=== PATIENT | male | born 1965 | race Caucasian/White ===

== ENCOUNTER 2016-12-08 16:52 | Emergency (ER) | payer OTHER ==
[~2016-12-08] VITALS: Ht 160 cm; Wt 83.5 kg
[2016-12-08 17:37] LABS: ABSOLUTE BASOPHIL COUNT 0 /CUMM (0.0-0.2); ABSOLUTE EOSINOPHIL COUNT 0.2 /CUMM (0.0-0.7); ABSOLUTE GRANULOCYTE CT 5.5 /CUMM (1.4-6.5); ABSOLUTE LYMPH COUNT 2.9 /CUMM (1.2-3.4); ABSOLUTE MONOCYTE COUNT 0.9 /CUMM (0.10-0.60); BASOPHIL % 0.4 % (0.0-2.0); EOSINOPHIL % 2.3 % (0-5); GRANULOCYTE % 57.7 % (42.2-75.2); HEMATOCRIT 45.3 % (42-52); MEAN CORPUSCULAR HGB 29.3 PG (27.0-31.0); MEAN CORPUSCULAR HGB CONC 33.9 G/DL (33.0-37.0); MEAN CORPUSCULAR VOLUME 86.4 FL (80.0-94.0); MEAN PLATELET VOLUME 8.5 FL (7.4-10.4); PLATELET COUNT 220 /CUMM (130-400); RBC DISTRIBUTION WIDTH 12.9 % (11.5-14.5); RED BLOOD CELL CT 5.24 /CUMM (4.70-6.10); WHITE BLOOD CELL COUNT 9.6 /CUMM (4.8-10.8)
--- NOTE | 2016-12-08 18:52 | ED GENERAL ADULT ---
History of Present Illness General Chief Complaint: General Adult Stated Complaint: HIGH BP PER PT, LIGHT HEADED, WEAKNESS Source: patient, Exam Limitations: no limitations Vital Signs & Intake/Output Vital Signs & Intake/Output Vital Signs Date Time Temp Pulse Resp B/P B/P Pulse O2 O2 Flow FiO2 Mean Ox Delivery Rate 12/08 1702 98.0 78 20 146/76 96 Room Air Allergies Coded Allergies: NO KNOWN ALLERGIES (10/25/14) Reconcile Medications No Known Home Medications Triage Note: PT TO ED C/O HIGH BLOOD PRESSURE. TOOK IT AT HOME AND IT WAS "150". DENIES ANY PAIN. C/O FEELING "VERY TIRED" AND DIZZY. BP IN TRIAGE 146/76. PT TO EKG [place]. Triage Nurses Notes Reviewed? yes Onset: Gradual Duration: day(s):, continues in ED Timing: multiple episodes today Severity: mild, moderate HPI: Patient presents for evaluation of generalized weakness and intermittent high blood pressure over the past 2 weeks. Patient states he also tends to feel a little dizzy at times and experiences occasional facial burning. He also feels he urinates a lot tend will also feel shaky at times. Past History Travel History Traveled to [place] past 21 day No Medical History Any Pertinent Medical History? see below for history Respiratory: SLEEP APNEA Surgical History Surgical History: non-contributory Psychosocial History What is your primary language Latvian Tobacco Use: Never used ETOH Use: denies use Illicit Drug Use: denies illicit drug use Family History Hx Contributory? No Review of Systems Review of Systems Constitutional: Reports: weakness. EENTM: Reports: no symptoms. Respiratory: Reports: no symptoms. Cardiovascular: Reports: no symptoms. GI: Reports: no symptoms. Genitourinary: Reports: see HPI. Musculoskeletal: Reports: no symptoms. Skin: Reports: no symptoms. Neurological/Psychological: Reports: no symptoms. Hematologic/Endocrine: Reports: no symptoms. Immunologic/Allergic: Reports: no symptoms. All Other Systems: Reviewed and Negative Physical Exam Physical Exam General Appearance: see below Comments: Gen.: Well-nourished, well-developed, no acute respiratory distress. Head: Normocephalic, atraumatic. Eyes: Normal inspection bilaterally Ears: Normal inspection bilaterally Nose: Normal inspection Throat/mouth : Moist mucosa Neck: Supple, full range of motion, no goiter Heart: Regular rate and rhythm, no murmurs rubs or gallops Lungs: Clear to auscultation bilaterally with normal air entry Chest: Nontender Back: Normal range of motion Abdomen: Soft, nontender, nondistended, normal bowel sounds Extremities: Normal range of motion grossly, equal radial pulses, no cyanosis clubbing or edema Neurologic: Cranial nerves grossly intact, speech is clear Skin: warm and dry Psychiatric: Calm, cooperative, no apparent delusions or hallucinations Core Measures ACS in differential dx? No CVA/TIA Diagnosis: No Severe Sepsis Present: No Septic Shock Present: No Progress Differential Diagnoses I considered the following diagnoses in my evaluation of the patient: Anemia, electrolyte abnormality, dehydration, hypothyroidism, urinary tract infection Plan of Care: Orders Procedure Date/time Status Add-on Test (ER Only) 12/08 1851 Active URINALYSIS 12/08 1748 Complete THYROID STIMULATING HORMONE 12/08 172 Complete COMPREHENSIVE METABOLIC PANEL 12/08 171 Complete CBC WITHOUT DIFFERENTIAL 12/08 1717 Complete EKG 12/08 170 Active Laboratory Tests 12/08/16 1720: Anion Gap 13, Estimated GFR > 60, BUN/Creatinine Ratio 17.5, Glucose 90, Calcium 9.5, Total Bilirubin 0.4, AST 32, ALT 57, Alkaline Phosphatase 58, Total Protein 8.2, Albumin 4.7, Globulin 3.5, Albumin/Globulin Ratio 1.3, TSH 1.860, CBC w Diff NO MAN DIFF REQ, RBC 5.24, MCV 86.4, MCH 29.3, RDW 12.9, MPV 8.5, Gran % 57.7, Lymphocytes % 30.0, Monocytes % 9.6 H, Eosinophils % 2.3, Basophils % 0.4 , Absolute Granulocytes 5.5, Absolute Lymphocytes 2.9, Absolute Monocytes 0.9 H , Absolute Eosinophils 0.2, Absolute Basophils 0, PUBS MCHC 33.9 12/08/16 1657: Urine Color STRAW, Urine Clarity CLEAR, Urine pH 6.0, Ur Specific Sylvester <= 1.005, Urine Protein NEG, Urine Ketones NEG, Urine Nitrite NEG, Urine Bilirubin NEG, Urine Urobilinogen 0.2, Ur Leukocyte Esterase NEG, Ur Microscopic EXAM NOT REQUIRED, Urine Hemoglobin NEG, Urine Glucose NEG Initial ED EKG: none Comments: 20:27 I have updated deisy and His on Test Results. He is feeling better. Although he has no known history of prostate problems, I suspect that he is suffering some prostate enlargement given his history of urinary frequency. Departure Departure Disposition: HOME OR SELF CARE Condition: Stable Clinical Impression Primary Impression: Malaise Referrals: SHUBHAM PETERSON DO (PCP/Family) EDUARDO RODRIGUEZ,ROSE Sebastian Additional Instructions: The cause of your symptoms is unclear at this point. Please follow-up with your primary care doctor for further evaluation and testing. He may also wish to follow up with Dr. Fitzpatrick given the frequent urination. Return if any concerns or sudden worsening. Consider using saw palmetto for your urinary frequency. Departure Forms: Customer Survey General Discharge Information Prescriptions: Current Visit Scripts No Known Home Medications Critical Care Note Critical Care Note Critical Care Time: non-applicable
[2016-12-08 20:46] VITALS: BP 138/72
== END 2016-12-08 20:47 ==
LOC: ERH 16:52
PROVIDERS: Emergency Medicine
DX: R53.81 Other malaise (principal)
CPT/HCPCS: 81003; 93005; 93010

== ENCOUNTER 2017-09-09 18:54 | Emergency (ER) | payer OTHER ==
[~2017-09-09] VITALS: Ht 160 cm; Wt 86.2 kg
[2017-09-09 19:50] LABS: ABSOLUTE BASOPHIL COUNT 0 /CUMM (0.0-0.2); ABSOLUTE EOSINOPHIL COUNT 0.2 /CUMM (0.0-0.7); ABSOLUTE GRANULOCYTE CT 4.6 /CUMM (1.4-6.5); ABSOLUTE LYMPH COUNT 2.9 /CUMM (1.2-3.4); ABSOLUTE MONOCYTE COUNT 1.2 /CUMM (0.10-0.60); BASOPHIL % 0.3 % (0.0-2.0); EOSINOPHIL % 2.1 % (0-5); GRANULOCYTE % 51.7 % (42.2-75.2); HEMATOCRIT 45.1 % (42-52); MEAN CORPUSCULAR HGB 28.9 PG (27.0-31.0); MEAN CORPUSCULAR VOLUME 87.5 FL (80.0-94.0); MEAN PLATELET VOLUME 8.6 FL (7.4-10.4); PLATELET COUNT 223 /CUMM (130-400); RBC DISTRIBUTION WIDTH 13.1 % (11.5-14.5); RED BLOOD CELL CT 5.16 /CUMM (4.70-6.10); WHITE BLOOD CELL COUNT 8.9 /CUMM (4.8-10.8)
--- NOTE | 2017-09-09 20:11 | RADIOLOGY REPORT ---
EXAMINATION: CHEST 2 VIEWS CLINICAL INFORMATION: Chest pain. COMPARISON: None. TECHNIQUE: PA and lateral views of the chest were obtained. FINDINGS: The cardiac silhouette is not enlarged. The mediastinal and hilar contours are unremarkable. There are neither pleural effusions nor pneumothoraces. There are no consolidations. The osseous structures are unremarkable. IMPRESSION: No evidence for acute disease.
[2017-09-09 22:00] VITALS: BP 113/79
--- NOTE | 2017-09-09 22:00 | ED CARDIAC/CP/PALPITATIONS ---
History of Present Illness General Chief Complaint: Chest Pain Stated Complaint: CP SINCE 113 TODAY Source: patient, family () Exam Limitations: no limitations Vital Signs & Intake/Output Vital Signs & Intake/Output Vital Signs Date Time Temp Pulse Resp B/P B/P Pulse O2 O2 Flow FiO2 Mean Ox Delivery Rate 09/097 98 Room Air 09/090 98.4 86 18 113/79 96 Room Air ED Intake and Output 09/10 0000 09/09 1200 Intake Total 0 Output Total Balance 0 Intake, Oral 0 Patient 190 lb Weight Allergies Coded Allergies: NO KNOWN ALLERGIES (04/22/17) Reconcile Medications Ibuprofen 800 MG TABLET 1 TAB PO TID PRN PAIN Triage Note: PT TO TRIAGE C/O CP SINCE 1129 WORSE WITH INSPIRATION AND MOVEMENT. PER PT PAIN 5/10, NON RADIATING. DENIES /DENIES DIAPHORESIS. STATES PAIN BEGAN AT REST. PT DENIES CARDIAC HX. Triage Nurses Notes Reviewed? yes Onset: Abrupt Duration: hour(s): (8) Timing: single episode today Quality/Severity: mild, sharp Location: central Radiation: no radiation Activities at Onset: none Prior Chest Pain/Card Workup: no prior chest pain, no prior cardiac workup Modifying Factors: Worsens With: breathing, movement, palpation. Nitro Today/Relief: no nitro taken today Aspirin Today: no aspirin today HPI: 52-year-old male past medical history of hypertension and obstructive sleep apnea presents for evaluation of chest pain. Patient states that the pain began around 11:30 this morning while he was at rest. Pain is located in the middle of his chest and does not radiate. He describes it as sharp. The pain is worse with deep inspiration range of motion of the chest wall and bilateral upper extremities. Also worse with touching the area. He states the pain is mild he rates it as a 5 out of 10. He has not taken any medicine for this. He states that the pain is gone significant weight better since it first started. He is never had this before. No shortness of breath hemoptysis lower extremity edema recent surgery recent trauma. He is not a diabetic. No previous history of SC or other heart issues. No sweats chills nausea vomiting. No back pain. (Marcelo Duran) Past History Travel History Traveled to [place] past 21 day No Medical History Any Pertinent Medical History? 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 No (Marcelo Duran) Review of Systems Review of Systems Constitutional: Reports: no symptoms. EENTM: Reports: no symptoms. Respiratory: Reports: no symptoms. Cardiovascular: Reports: see HPI, chest pain. GI: Reports: no symptoms. Genitourinary: Reports: no symptoms. Musculoskeletal: Reports: no symptoms. Skin: Reports: no symptoms. Neurological/Psychological: Reports: no symptoms. Hematologic/Endocrine: Reports: no symptoms. Immunologic/Allergic: Reports: no symptoms. All Other Systems: Reviewed and Negative (Marcelo Duran) Physical Exam Physical Exam General Appearance: well developed/nourished, no apparent distress, alert, awake Head: atraumatic, normal appearance Eyes: Bilateral: normal appearance, PERRL, EOMI. Ears, Nose, Throat: normal pharynx, normal ENT inspection, hearing grossly normal Neck: normal inspection, supple, full range of motion, NO JVD Respiratory: normal breath sounds, no respiratory distress, lungs clear, CHEST WALL IS TENDER TO PALPATION Cardiovascular: regular rate/rhythm, normal peripheral pulses Peripheral Pulses: 2+ radial (R), 2+ radial (L) Gastrointestinal: soft, non-tender Back: normal inspection, normal range of motion, no vertebral tenderness Extremities: normal inspection, normal range of motion, no edema Neurologic/Psych: no motor/sensory deficits, awake, alert, oriented x 3, normal gait Skin: intact, normal color, warm/dry Lymphatic: no anterior cervical tiffanie Core Measures ACS in differential dx? Yes No ASA d/t ruled out CVA/TIA Diagnosis No Sepsis Present: No Sepsis Focused Exam Completed? No (Marcelo Duran) Progress Differential Diagnosis: AMI, aortic dissection, costochondritis, musculoskeletal pain, pancreatitis, pericarditis, pneumonia, pneumothorax, pulmonary embolism, PUD/GERD, PVCs/PACs, unstable angina Plan of Care: Orders Procedure Date/time Status TROPONIN LEVEL 09/09 2218 Complete EKG 09/09 2218 Active Laboratory Tests 09/09/17 2222: Troponin I < 0.01 Patient seen and evaluated. He is reporting chest pain started 11:30 this morning. The pain is very reproducible with range of motion palpation and deep inspiration. The pain has improved significantly. Currently 2 out of 10. He hasno cardiac history. He does not drink smoke or use any drugs. Initial troponin and EKG are negative. D-dimer is negative chest x-ray clear. A repeat EKG and troponin was done which is negative and unchanged. Patient is feeling much better. He medicated with Tylenol. Suspect this may be musculoskeletal etiology. Advised rest avoid excessive physical activity apply heating pad T Tylenol or ibuprofen as needed. Follow-up with primary care doctor. Discussed return precautions in detail return with any concerns. Case discussed with Dr. Wick and he agrees. Diagnostic Imaging: Viewed by Me: Radiology Read. Discussed w/RAD: Radiology Read. CXR Impression: PATIENT: LYDIA FREIRE PRESENT AGE : 52 PATIENT ACCOUNT NO: [id number] : 66 LOCATION: [facility] ORDERING PHYSICIAN: Roc CM SERVICE DATE: 09/09/17 EXAM TYPE: RAD - XRY-CHEST XRAY, TWO VIEWS EXAMINATION: CHEST 2 VIEWS CLINICAL INFORMATION: Chest pain. COMPARISON: None. TECHNIQUE: PA and lateral views of the chest were obtained. FINDINGS: The cardiac silhouette is not enlarged. The mediastinal and hilar contours are unremarkable. There are neither pleural effusions nor pneumothoraces. There are no consolidations. The osseous structures are unremarkable. IMPRESSION: No evidence for acute disease. DICTATED BY: Jarrod Sanz MD DATE/TIME DICTATED:09/09/172006 PONY ROUGHER:THAIS DATE/TIME TRANSCRIBED:09/09/172006 CONFIDENTIAL, DO NOT COPY WITHOUT APPROPRIATE AUTHORIZATION. <Electronically signed in Other Vendor System> Initial ED EKG: normal sinus rhythm, no ST T wave changes, PROBABLE POSTEIRO INFARCT Repeat EKG: unchanged (Marcelo Duran) Departure Departure Disposition: HOME OR SELF CARE Condition: Stable Clinical Impression Primary Impression: Chest wall pain Referrals: Unknown (PCP/Family) Additional Instructions: Rest, avoid heavy lifting or excessive physical activity. Ibuprofen 800 mg every 8 hours with food as needed for pain. Make a follow-up with YOUr primary care doctor for this week. Monitor symptoms return with any concerns. Departure Forms: Customer Survey General Discharge Information Prescriptions: Current Visit Scripts Ibuprofen 1 TAB PO TID PRN PAIN #30 TAB (Marcelo Duran) PA/VULCANIZER OPERATOR Co-Sign Statement Statement: ED Attending supervision documentation- x I saw and evaluated the patient. I have also reviewed all the pertinent lab results and diagnostic results. I agree with the findings and the plan of care as documented in the PA's/VULCANIZER OPERATOR's documentation. [] I have reviewed the ED Record and agree with the PA's/VULCANIZER OPERATOR's documentation. [] Additions or exceptions (if any) to the PAs/VULCANIZER OPERATOR's note and plan are summarized below: [] (Thien RODRIGUEZ,Jaxson) Critical Care Note Critical Care Note Critical Care Time: non-applicable (Marcelo Duran)
[2017-09-09] MEDS ORDERED: IBUPROFEN800 M1 PO (23:06)
== END 2017-09-09 23:12 ==
LOC: ERH 18:54
PROVIDERS: Physician Assistant Medical
DX: R07.89 Other chest pain (principal)
CPT/HCPCS: 71046; 93005; 93010